=== PATIENT | male | born 1990 | race African-American/Black ===

== ENCOUNTER 2020-05-24 11:50 | Inpatient (IN) | payer MEDICARE, OTHER ==
[~2020-05-24] VITALS: Ht 172.7 cm; Wt 103.0 kg
--- NOTE | 2020-05-24 11:55 | NUR ---
Dr Morales at the bedside for MSE.
[2020-05-24] MEDS ORDERED: KETOROLAC TROMETHAMINE 30 MG INJ IM ONE (12:00)
[2020-05-24] MEDS ORDERED: KETOROLAC TROMETHAMINE 30 MG INJ ONE (12:02)
[2020-05-24] MEDS ORDERED: CLOZ200T24 PO (12:08)
[2020-05-24] MEDS ORDERED: LIDOCAINE HCL 2% 20 ML VIAL ONE (12:43)
[2020-05-24] MEDS ORDERED: LIDOCAINE HCL 2% 20 ML VIAL IJ ONE (13:00)
[2020-05-24] MEDS ORDERED: OXYCODONE/APAP 5-325 MG TABLET PO ONE (13:15)
[2020-05-24] MEDS ORDERED: OXYCODONE/APAP 5-325 MG TABLET ONE (13:19)
--- NOTE | 2020-05-24 13:25 | NUR ---
Crutches dispensed. Pt instructed on proper use of crutches. Patient able to demonstrate correct use of crutches.
--- NOTE | 2020-05-24 14:25 | NUR ---
Dr Morales spoke to Dr Abernathy(Ortho), pt to be admited.
--- NOTE | 2020-05-24 14:33 | NUR ---
Pt declined to change to hospital gown.
--- NOTE | 2020-05-24 14:46 | NUR ---
TEXTED FOR MRI APPROVAL.
[2020-05-24 14:49] LABS: BASOPHILS # (AUTO) 0.1 K/uL (0.0-8.0); BASOPHILS % (AUTO) 0.5 % (0.0-2.0); EOSINOPHILS # (AUTO) 0.1 K/uL (0.0-0.7); EOSINOPHILS % (AUTO) 0.8 % (0.0-7.0); HEMATOCRIT 43.6 % (36.7-47.1); LYMPHOCYTES # (AUTO) 1.2 K/uL (20.0-40.0); LYMPHOCYTES % (AUTO) 12.4 % (20.5-51.5); MEAN CORPUSCULAR HEMOGLOBIN 23.6 uug (23.8-33.4); MEAN CORPUSCULAR HGB CONC 32 g/dL (32.5-36.3); MEAN CORPUSCULAR VOLUME 73.2 fL (73.0-96.2); MONOCYTES # (AUTO) 0.4 K/uL (2.0-10.0); MONOCYTES % (AUTO) 4.5 % (0.0-11.0); NEUTROPHILS # (AUTO) 7.9 K/uL (1.8-8.9); NEUTROPHILS % (AUTO) 81.8 % (38.5-71.5); PLATELET COUNT (AUTO) 237 K/uL (152-348); RED BLOOD CELL COUNT(AUTO) 5.95 MIL/uL (4.06-5.63); WHITE BLOOD COUNT (AUTO) 9.7 K/uL (3.6-10.2)
[2020-05-24 14:55] LABS: CREATININE 0.9 mg/dL (0.6-1.3); POTASSIUM 3.9 mmol/L (3.5-5.1)
[2020-05-24 15:24] VITALS: BP 112/54
--- NOTE | 2020-05-24 15:25 | NUR ---
Pt admitted to [facility] 308 awake AOx4 on RA with no SOB or distress noted at this time. Denied chest pain. IV on left AC 20g flushed and patent. Immobilizer in left knee and complained of 5/10 pain upon movement. Oriented to room and unit policy. Belongings, phone and call light at bedside. Urinal also at bedside. Safety precaution initiated. Bed locked in lowest position with siderails 2x up. No other complaints at this time
[2020-05-24 16:50] LABS: BAND % (MANUAL) 1 % (0-10); LYMPHOCYTES % (MANUAL) 16 % (20-40); MONOCYTES % (MANUAL) 5 % (2-10); NEUTROPHILS % (MANUAL) 74 % (42-75)
[2020-05-24 16:51] LABS: EOSINOPHILS % (MANUAL) 2 % (0-8)
[2020-05-24] MEDS ORDERED: ONDANSETRON 4 MG/2 ML VIAL IV PRN (17:15)
[2020-05-24] MEDS ORDERED: HYDROCODONE/APAP 5-325MG TABLET PO PRN (17:15)
[2020-05-24] MEDS ORDERED: ACETAMINOPHEN 325 MG TABLET PO PRN (17:15)
--- NOTE | 2020-05-24 19:00 | NUR ---
Patient alert oriented, no sob no chest pain, complain of left knee pain and numbness, Dr dykes was aware and will see the patient tonight.
[2020-05-24 20:00] VITALS: BP 106/50
[2020-05-24] MEDS: DOCUSATE SODIUM 100 MG CAPSULE PO SCH (20:18)
--- NOTE | 2020-05-24 21:32 | NUR ---
Patient seen by Dr Mcneil with order of ambien 10mg prn.
[2020-05-24] MEDS: MORPHINE SULFATE 2 MG/1 ML DISP.SYRIN IV PRN (21:51)
--- NOTE | 2020-05-24 21:54 | NUR ---
Dr Abernathy returned he call and ordered to kept patient npo and he will see patient tomorrow.
[2020-05-24] MEDS: ZOLPIDEM 5 MG TABLET PO PRN (22:05)
[2020-05-25] VITALS (7 sets, daily range): BP systolic 89–118; BP diastolic 39–64
[2020-05-25] MEDS: MORPHINE SULFATE 2 MG/1 ML DISP.SYRIN IV PRN ×2 (03:21→10:06)
[2020-05-25] MEDS: PANTOPRAZOLE SODIUM 40 MG TABLET.DR PO SCH (06:01)
--- NOTE | 2020-05-25 06:49 | NUR ---
Patient slept most of the night, no sob no chest pain, cont pain management of left knee. Patient left knee with leg brace in place. for MRI of left knee, cont to monitor.
[2020-05-25 07:07] LABS: BASOPHILS # (AUTO) 0.2 K/uL (0.0-8.0); BASOPHILS % (AUTO) 2.6 % (0.0-2.0); EOSINOPHILS % (AUTO) 0.7 % (0.0-7.0); HEMATOCRIT 42.3 % (36.7-47.1); HEMOGLOBIN 13.5 g/dL (12.5-16.3); LYMPHOCYTES # (AUTO) 1.1 K/uL (20.0-40.0); MEAN CORPUSCULAR HEMOGLOBIN 23.5 uug (23.8-33.4); MEAN CORPUSCULAR HGB CONC 32 g/dL (32.5-36.3); MEAN CORPUSCULAR VOLUME 73.7 fL (73.0-96.2); MONOCYTES # (AUTO) 0.7 K/uL (2.0-10.0); MONOCYTES % (AUTO) 9.3 % (0.0-11.0); NEUTROPHILS # (AUTO) 5.3 K/uL (1.8-8.9); NEUTROPHILS % (AUTO) 72.4 % (38.5-71.5); PLATELET COUNT (AUTO) 208 K/uL (152-348); RED BLOOD CELL COUNT(AUTO) 5.74 MIL/uL (4.06-5.63); WHITE BLOOD COUNT (AUTO) 7.3 K/uL (3.6-10.2)
[2020-05-25 07:20] LABS: THYROID STIMULATING HORMONE 1.773 mIU/mL (0.358-3.740)
[2020-05-25 07:21] LABS: BILIRUBIN,TOTAL 1.7 mg/dL (0.2-1.0); MAGNESIUM 1.8 mg/dL (1.8-2.4); PHOSPHOROUS 3.8 mg/dL (2.5-4.9); POTASSIUM 4.5 mmol/L (3.5-5.1); TOTAL PROTEIN, SERUM 6.5 g/dL (6.4-8.2)
--- NOTE | 2020-05-25 09:15 | NUR ---
Came back from MRI. NPO instructed, maintained. Discuss plan of care
--- NOTE | 2020-05-25 12:02 | NUR ---
Per Dr. Fung's request, this SW completed an Authorization to Release Information form in order to request patient's medical information from [facility]. NEHA Zaman obtained patient's signature on the form. This SW faxed the release form to [facility], ATTN: Maya. (tel # [phone]). The form was filed in patient's chart.
--- NOTE | 2020-05-25 12:15 | NUR ---
Seen by Dr. Abernathy. Consent signed by patient.To OR by bed
[2020-05-25] MEDS ORDERED: MIDAZOLAM HCL 2 MG/2 ML VIAL ONE (12:42)
[2020-05-25] MEDS ORDERED: HYDROMORPHONE 2 MG/1 ML DISP.SYRIN ONE (12:42)
--- NOTE | 2020-05-25 15:40 | NUR ---
Received patient from [facility]throscopy left knee with partial lateral menisectomy, via bed. Awake, alert, oriented x 4. LLE with dressing dry and intact, pedal pulse good, ice packs applied. PT eval initiated but BP low and patient unable to get out of bed. Patient not stable for discharge
[2020-05-25] MEDS ORDERED: HYDROCODONE/APAP 10-325 MG TABLET PO PRN (16:00)
[2020-05-25] MEDS ORDERED: ONDANSETRON 4 MG/2 ML VIAL IV ONE (16:43)
[2020-05-25] MEDS ORDERED: SEVOFLURANE 250 ML BOTTLE IH ONE (16:43)
[2020-05-25] MEDS ORDERED: KETOROLAC TROMETHAMINE 30 MG INJ IM ONE (16:43)
[2020-05-25] MEDS ORDERED: LIDOCAINE-MPF 2% 5 ML VIAL MC ONE (16:43)
[2020-05-25] MEDS ORDERED: PROPOFOL 200 MG/20 ML BOTTLE IV ONE (16:43)
[2020-05-25] MEDS ORDERED: METOCLOPRAMIDE HCL 10 MG/2 ML VIAL IV ONE (16:43)
[2020-05-25] MEDS ORDERED: IV D5 1/2 NS 1000 ML 1,000 ML IV PRN (17:00)
--- NOTE | 2020-05-25 18:47 | NUR ---
Tolerated diet. IVF started as ordered.
[2020-05-25] MEDS: ZOLPIDEM 5 MG TABLET PO PRN (20:56)
[2020-05-25] MEDS: DOCUSATE SODIUM 100 MG CAPSULE PO SCH (20:56)
[2020-05-25] MEDS ORDERED: DIVALPROEX ER 500 MG TAB.SR.24H PO SCH (21:00)
[2020-05-26 04:25] VITALS: BP 100/68
--- NOTE | 2020-05-26 05:27 | NUR ---
report received from retail shift supervisor nurse
[2020-05-26] MEDS: MORPHINE SULFATE 4 MG/1 ML DISP.SYRIN IV PRN ×2 (05:35→09:51)
[2020-05-26] MEDS: PANTOPRAZOLE SODIUM 40 MG TABLET.DR PO SCH (06:01)
--- NOTE | 2020-05-26 07:15 | NUR ---
Patient left in stable condition, no sign of respiratory distress noted. Patient left with all his belongings and discharge instructions. Patient left in private vehicle with friend Kendrick. Arrangements made with home health and contact information given to the patient for the home health agency.
[2020-05-26 07:26] LABS: BASOPHILS % (AUTO) 0.5 % (0.0-2.0); EOSINOPHILS # (AUTO) 0.1 K/uL (0.0-0.7); HEMOGLOBIN 13.5 g/dL (12.5-16.3); LYMPHOCYTES # (AUTO) 1.7 K/uL (20.0-40.0); LYMPHOCYTES % (AUTO) 19.8 % (20.5-51.5); MEAN CORPUSCULAR HEMOGLOBIN 23.7 uug (23.8-33.4); MEAN CORPUSCULAR HGB CONC 32 g/dL (32.5-36.3); MEAN CORPUSCULAR VOLUME 73.6 fL (73.0-96.2); MONOCYTES # (AUTO) 0.9 K/uL (2.0-10.0); NEUTROPHILS # (AUTO) 5.9 K/uL (1.8-8.9); NEUTROPHILS % (AUTO) 68.7 % (38.5-71.5); PLATELET COUNT (AUTO) 195 K/uL (152-348); RED BLOOD CELL COUNT(AUTO) 5.71 MIL/uL (4.06-5.63); WHITE BLOOD COUNT (AUTO) 8.6 K/uL (3.6-10.2)
[2020-05-26 07:32] LABS: CREATININE 1.1 mg/dL (0.6-1.3); POTASSIUM 4.7 mmol/L (3.5-5.1)
--- NOTE | 2020-05-26 07:45 | NUR ---
Received patient in bed awake alert and oriented x4. Saturation well on room air with no SOB or distress noted at this time. Denied chest pain. IV on left AC 20g flushed and patent. left knee is covered with bandage and complained of pain upon movement, will check for pain medications available. Reinforced teaching of not bending leg and elevating with the use of icepacks. Belongings, phone and call light at bedside. Urinal also at bedside. Safety precaution initiated. Bed locked in lowest position with siderails 2x up. Complained of hunger, will check on breakfast tray. will continue to monitor
[2020-05-26] MEDS ORDERED: FLUOXETINE HCL 20 MG CAPSULE PO SCH (09:00)
--- NOTE | 2020-05-26 10:26 | NUR ---
PT reports that patient was able to walk down the hallway with a walker. She says he says he is more comfortable with walker and feels unsteady with crutches. PT will return around [id number] to reevaluate patient. Will continue to monitor.
[2020-05-26 11:15] VITALS: BP 118/55
[2020-05-26 16:15] VITALS: BP 100/50
== END 2020-05-26 19:05 | disposition home health service (06) | DRG 488 ==
LOC: ER 11:50 → MEDSURG3 15:13
PROVIDERS: ADMIT Internal Medicine; ATTEND Family Medicine
PROC: 0SBD4ZZ Excision of Left Knee Joint, Percutaneous Endoscopic Approach (ICD-10-PCS; principal; 2020-05-25)
DX: S83.252A Bucket-handle tear of lateral meniscus, current injury, left knee, initial encounter (principal); F31.64 Bipolar disorder, current episode mixed, severe, with psychotic features; X58.XXXA Exposure to other specified factors, initial encounter; E66.9 Obesity, unspecified; Z68.34 Body mass index [BMI] 34.0-34.9, adult; F41.9 Anxiety disorder, unspecified; G47.00 Insomnia, unspecified; Y93.9 Activity, unspecified; Y92.009 Unspecified place in unspecified non-institutional (private) residence as the place of occurrence of the external cause; D64.9 Anemia, unspecified
CPT/HCPCS: 36415; 70030-TC; 73502; 73721; 83550; 83735; 84100; 84443; 85025; 85730; 86850; 86900; 86901; 93005; A4663; C1713; G0378; J1170; J1885; J2250; J2270; J2405; J2765; J3490

== ENCOUNTER 2024-05-06 14:38 | Emergency (ER) | payer MEDICARE, OTHER ==
[~2024-05-06] VITALS: Ht 172.7 cm; Wt 137.0 kg
[2024-05-06 15:02] LABS: BASOPHILS # (AUTO) 0.1 K/UL (0.0-0.2); BASOPHILS % (AUTO) 0.7 % (0.0-2.0); EOSINOPHILS # (AUTO) 0.1 K/uL (0.0-0.7); HEMATOCRIT 46.2 % (36.7-47.1); HEMOGLOBIN 14.5 g/dL (12.5-16.3); LYMPHOCYTES # (AUTO) 2.3 K/uL (0.8-4.8); LYMPHOCYTES % (AUTO) 23.6 % (20.5-51.5); MEAN CORPUSCULAR HEMOGLOBIN 22.8 uug (23.8-33.4); MEAN CORPUSCULAR HGB CONC 31 g/dL (32.5-36.3); MEAN CORPUSCULAR VOLUME 72.5 fL (73.0-96.2); MONOCYTES # (AUTO) 0.7 K/uL (0.1-1.30); MONOCYTES % (AUTO) 7.5 % (0.0-11.0); NEUTROPHILS # (AUTO) 6.6 K/uL (1.8-8.9); NEUTROPHILS % (AUTO) 67.2 % (38.5-71.5); PLATELET COUNT (AUTO) 346 K/uL (152-348); RED BLOOD CELL COUNT(AUTO) 6.37 MIL/uL (4.06-5.63); RED CELL DISTRIBUTION WIDTH 16.7 % (12.1-16.2); WHITE BLOOD COUNT (AUTO) 9.8 K/uL (3.6-10.2)
[2024-05-06 15:09] LABS: CALCIUM 9.2 mg/dL (8.5-10.1); CARBON DIOXIDE 28 mmol/L (21-32); CHLORIDE 103 mmol/L (98-107); CREATININE 0.9 mg/dL (0.6-1.3); GLUCOSE 108 mg/dL (74-106); POTASSIUM 3.8 mmol/L (3.5-5.1); SODIUM SERUM 141 mmol/L (136-145); UREA NITROGEN, BLOOD 12 mg/dL (7-18)
[2024-05-06 15:17] LABS: ALANINE AMINOTRANSFERASE 62 U/L (16-63); ALBUMIN 4.2 g/dL (3.4-5.0); ALKALINE PHOSPHATASE 59 U/L (50-136); ASPARTATE AMINOTRANSFERASE 27 U/L (15-37); BILIRUBIN,DIRECT 0.3 mg/dL (0.0-0.2); BILIRUBIN,TOTAL 1.4 mg/dL (0.2-1.0); TOTAL PROTEIN, SERUM 7.5 g/dL (6.4-8.2)
[2024-05-06] MEDS ORDERED: ONDA4TAB5 PO (15:50)
[2024-05-06] MEDS ORDERED: FAMO-132 PO (15:50)
[2024-05-06] MEDS ORDERED: BENZ-13 PO (15:50)
[2024-05-06 16:36] VITALS: BP 108/78; O2SAT 97
== END 2024-05-06 16:38 | disposition home or self-care (01) ==
LOC: ER 14:38
DX: R05.9 Cough, unspecified (principal); R10.13 Epigastric pain; F32.A Depression, unspecified; Z98.890 Other specified postprocedural states; Z79.899 Other long term (current) drug therapy; Z91.012 Allergy to eggs
CPT/HCPCS: 36415; 71045; 84443; 84484; 85025; 93005; A4606; A4663